=== PATIENT | female | born 1960 | race Caucasian/White ===

== ENCOUNTER → 2018-01-17 | Outpatient (CLI) | payer BC ==
[~2018-01-17] VITALS: Ht 157.5 cm; Wt 77.1 kg
[~2018-01-17] MED LIST: ASPIR 8181 M1 PO; CALCIUM 500 +1 EAC5 PO; COZAAR25 MG PO; CYANOCOBALAM1000 MCG PO; IRON325 M1 PO; MAG-G27 MG PO; OMEPRAZOLE20 MG PO; VITAMIN B-625 MG PO; VITAMIN D2000 UNIT PO
== END | disposition home or self-care (01) ==
LOC: AMB 10:52
DX: Z12.11 Encounter for screening for malignant neoplasm of colon (principal); D12.2 Benign neoplasm of ascending colon; D12.8 Benign neoplasm of rectum; K57.30 Diverticulosis of large intestine without perforation or abscess without bleeding; K62.89 Other specified diseases of anus and rectum; I10 Essential (primary) hypertension; K21.9 Gastro-esophageal reflux disease without esophagitis; Z79.82 Long term (current) use of aspirin; E66.9 Obesity, unspecified; Z68.31 Body mass index [BMI] 31.0-31.9, adult
CPT/HCPCS: 88305; 93005